=== PATIENT | female | born 1970 | race American Indian/Alaskan Native ===

== ENCOUNTER 2018-09-05 17:24 | Emergency (ER) | payer OTHER, BC ==
[2018-09-05] MEDS ORDERED: IBUPROFEN PO ONE (17:43)
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
[2018-09-05 21:38] VITALS: BP 141/90
== END 2018-09-05 21:39 | disposition home or self-care (01) ==
LOC: ED 17:24
DX: M54.2 Cervicalgia (principal); R51 Headache; M19.90 Unspecified osteoarthritis, unspecified site; Z88.0 Allergy status to penicillin; Z79.1 Long term (current) use of non-steroidal anti-inflammatories (NSAID); Z79.899 Other long term (current) drug therapy; Z90.49 Acquired absence of other specified parts of digestive tract; Z90.89 Acquired absence of other organs; V89.2XXA Person injured in unspecified motor-vehicle accident, traffic, initial encounter; Y93.89 Activity, other specified; Y92.488 Other paved roadways as the place of occurrence of the external cause; Y99.8 Other external cause status
CPT/HCPCS: 72040; 99283